=== PATIENT | female | born 1935 | race Caucasian/White ===

== ENCOUNTER 2024-01-26 18:29 | Emergency (ER) | payer OTHER ==
[~2024-01-26] VITALS: Ht 144.8 cm; Wt 43.1 kg
[2024-01-26 19:18] VITALS: BP_SYST 144; PULSE 63; RESP 16; TEMP 98.3; O2SAT 99
[2024-01-26] MEDS: ONDANSETRON 4 MG ODT TAB PO ONE (20:52)
[2024-01-26] MEDS: MORPHINE 4 MG INJ. 4 MG/ML VIAL IM ONE (20:54)
[2024-01-26 22:04] VITALS: BP_SYST 139; PULSE 58; RESP 16; TEMP 98.5; O2SAT 97
[2024-01-28] MEDS ORDERED: IBUP-2018 PO (11:59)
[2024-01-28] MEDS ORDERED: HYDR-3917 PO (11:59)
== END 2024-01-26 22:06 | disposition home or self-care (01) ==
LOC: SED 18:29
DX: M25.551 Pain in right hip (principal); M79.651 Pain in right thigh; I10 Essential (primary) hypertension; Z88.1 Allergy status to other antibiotic agents
CPT/HCPCS: 99283; 73502; 73552; 96372; Q0162; J2270

== ENCOUNTER 2024-05-03 12:03 | Emergency (ER) | payer OTHER ==
[~2024-05-03] VITALS: Ht 152.4 cm; Wt 41.3 kg
[~2024-05-03 12:03] MED LIST: HYDR-3917 PO; IBUP-2018 PO
[2024-05-03 12:14] VITALS: BP_SYST 176; PULSE 60; RESP 17; TEMP 97.9; O2SAT 97
[2024-05-03 12:40] LABS: BASOPHILS % (AUTO) 0.4 % (0.0-2.0); EOSINOPHILS # (AUTO) 0.1 K/uL (0.0-0.4); EOSINOPHILS % (AUTO) 1.4 % (0.0-4.0); HEMATOCRIT 32.8 % (36-48); LYMPHOCYTES # (AUTO) 1.2 K/uL (1.0-5.5); LYMPHOCYTES % (AUTO) 20.9 % (20.5-51.5); MEAN CORPUSCULAR HEMOGLOBIN 32 pg (27-31); MEAN CORPUSCULAR HGB CONC 34 % (32-36); MEAN CORPUSCULAR VOLUME 94 fL (79.0-98.0); MONOCYTES # (AUTO) 0.6 K/uL (0.0-1.0); MONOCYTES % (AUTO) 10.4 % (1.7-9.3); NEUTROPHILS % (AUTO) 66.9 % (40.0-70.0); PLATELET COUNT (AUTO) 210 K/uL (130-430); RED CELL DISTRIBUTION WIDTH 13.1 % (9.0-15.0); WHITE BLOOD COUNT (AUTO) 5.9 K/uL (4.8-10.8)
[2024-05-03 13:01] LABS: ANION GAP 4 (5-15); CALCIUM 9.7 mg/dL (8.4-11.0); CARBON DIOXIDE 33 mmol/L (23-29); CHLORIDE 104 mmol/L (98-107); CREATININE 0.62 mg/dL (0.55-1.30); GLUCOSE 92 mg/dL (74-106); POTASSIUM 4.5 mmol/L (3.5-5.1); SODIUM SERUM 141 mmol/L (136-145); UREA NITROGEN, BLOOD 9 mg/dL (8-21)
[2024-05-03 13:42] LABS: INR 0.9 (0.8-1.2)
[2024-05-03 13:47] VITALS: TEMP 97.9
[2024-05-03 17:52] VITALS: BP_SYST 139; PULSE 57; RESP 18; O2SAT 97
== END 2024-05-03 17:53 | disposition home or self-care (01) ==
LOC: SED 12:03
DX: R07.89 Other chest pain (principal); R00.1 Bradycardia, unspecified; Z88.1 Allergy status to other antibiotic agents; Z79.899 Other long term (current) drug therapy
CPT/HCPCS: 36415; 71045; 80048; 84484; 85025; 85610; 85730; 93005; 99285